=== PATIENT | male | born 1950 ===

== ENCOUNTER 2018-03-08 20:30 | Outpatient (CLI) | payer OTHER | END 2018-03-08 20:31 | disposition home or self-care (01) | LOC: SLEEPLAB 20:30 | DX: G47.33 Obstructive sleep apnea (adult) (pediatric) (principal); G47.10 Hypersomnia, unspecified; G47.51 Confusional arousals; R53.83 Other fatigue; R06.83 Snoring; F32.9 Major depressive disorder, single episode, unspecified; I10 Essential (primary) hypertension; E11.9 Type 2 diabetes mellitus without complications; G47.61 Periodic limb movement disorder; G47.31 Primary central sleep apnea | CPT/HCPCS: 95811 ==